=== PATIENT | female | born 1945 | race Asian ===

== ENCOUNTER 2017-03-27 11:32 | Emergency (ER) | payer MEDICARE, MEDICAID ==
[~2017-03-27] VITALS: Ht 162.6 cm; Wt 62.6 kg
[~2017-03-27 11:32] MED LIST: CRESTOR10 M2 ORAL
[2017-03-27] MEDS ORDERED: Tylenol #3 tab (300mg/30mg) ORAL ONE (11:45)
--- NOTE | 2017-03-27 11:47 | Emergency Room Report ---
History of Present Illness General Chief Complaint: Lower Extremity Injury Source: Patient Present Illness HPI Patient presents with complaints of left ankle injury Patient was stepping off the bus just prior to arrival when she twisted her ankle Also falling backwards and hitting the back of her head Denies any loss of consciousness Denies taking any blood thinners Denies any chest pain or shortness of breath Pain is localized to the left ankle with obvious clinical deformity Denies any pain denies any pelvic pain Pain to the left ankle is 10 out of 10 Allergies: Coded Allergies: No Known Allergies (Unverified , 03/27/17) Patient History Past Medical History: see triage record Pertinent Family History: none Reviewed Nursing Documentation: PMH: Agreed, PSxH: Agreed Review of Systems All Other Systems: negative except mentioned in HPI Physical Exam Vital Signs Date Time Temp Pulse Resp B/P Pulse Ox O2 Delivery O2 Flow Rate FiO2 03/27/17 11:19 98.8 69 16 156/73 98 Room Air Sp02 EP Interpretation: reviewed, normal General Appearance: well appearing, no apparent distress Head: normocephalic, atraumatic Eyes: bilateral eye EOMI, bilateral eye PERRL ENT: normal pharynx, no angioedema Neck: full range of motion, supple Respiratory: normal inspection, chest non-tender, lungs clear Cardiovascular #1: regular rate, rhythm, no gallop Gastrointestinal: non tender, soft Musculoskeletal: other - Deformity to the left ankle with swelling, no obvious cuts or lacerations, neurovascularly intact Skin: other - As above Lymphatic: no adenopathy Procedures Splinting Splinting : Consent: Verbal Location: left ankle Hand-Made Type: plaster Splint: sugar-tong Pre-Proc Neuro Vasc Exam: normal Post-Proc Neuro Vasc Exam: normal Patient Tolerated: Well Complications: None Medical Decision Making Diagnostic Impression: Primary Impression: Ankle fracture, left ER Course Given the patient's presentation Pain medication was provided upon arrival X-ray machine does show fibular fracture Given that there is no open wounds Patient is appropriate for outpatient followup with orthopedics splint was applied as noted above patient continues to feel better and is stable for followup Other X-Ray Diagnostic Results Other X-Ray Diagnostic Results : EP Interpretation: Yes Findings: other - Distal fibular fracture oblique, minimal displacement, positive for soft tissue changes no foreign body Number of Views: 3 - left ankle Last Vital Signs Date Time Temp Pulse Resp B/P Pulse Ox O2 Delivery O2 Flow Rate FiO2 03/27/17 11:19 98.8 69 16 156/73 98 Room Air Status: improved Disposition: HOME, SELF-CARE Condition: Improved Scripts Acetaminophen With Codeine (T#3) (TYLENOL #3 TAB*) Y Tab 1 TAB ORAL Q8H Y for For Pain, #12 TAB Prov: JANEE ANDRES D.O. 03/27/17 Ibuprofen* (MOTRIN*) 600 Mg Tablet 600 MG ORAL Q8H Y for For Pain, #20 TAB 0 Refills Prov: JANEE ANDRES D.O. 03/27/17 Additional Instructions: Patient is provided with the discharge instructions notified to follow up with primary doctor in the next 2-3 days otherwise return to the er with any worsening symptoms. Please note that this report is being documented using [employer] technology. This can lead to erroneous entry secondary to incorrect interpretation by the dictating instrument. JANEE ANDRES D.O. March 27, 2017 11:47
[2017-03-27 12:25] VITALS: BP 137/80
[2017-03-27] MEDS ORDERED: IBUPROFEN600 MG ORAL (13:59)
[2017-03-27] MEDS ORDERED: ACETAMINOPHEN-1 EAC1 ORAL (13:59)
--- NOTE | 2017-03-29 08:09 | Diagnostic Imaging Report ---
Indication: Pain Comparison: None Findings: 3 views of the left ankle obtained. There is acute nondisplaced fracture of the lateral malleolus. No other fractures are seen. Alignment appears normal. Soft tissue swelling is present. Impression: Acute lateral malleolus fracture
[2017-03-29 12:00] VITALS: BP 137/80
== END 2017-03-29 12:00 | disposition home or self-care (01) ==
LOC: EDBD 11:32 → EMR 12:00
DX: S82.892A Other fracture of left lower leg, initial encounter for closed fracture (principal); W19.XXXA Unspecified fall, initial encounter; Y93.9 Activity, unspecified; Y92.811 Bus as the place of occurrence of the external cause
CPT/HCPCS: 29515; 99284